=== PATIENT | male | born 1985 | race Caucasian/White ===

== ENCOUNTER 2016-08-29 18:12 | Emergency (ER) | payer MEDICAID ==
[~2016-08-29] VITALS: Ht 177.8 cm; Wt 113.6 kg
[~2016-08-29 18:12] MED LIST: ATARAX 10MG10 MG/TAB PO; FLEXERIL 1010 MG/TAB PO; NO HOME MEDICATIONS; NORCO 325 MG-51 TAB PO; PROCTOFOAM-HC 11 FOA RC; SEROQUEL50 MG PO; ZOLOFT 100MG100 MG PO
[2016-08-29 18:15] VITALS: BP 109/78; TEMP 98.6
[2016-08-29] MEDS ORDERED: DESYREL 50MG50 MG PO (18:18)
[2016-08-29] MEDS ORDERED: BUSPAR5 MG PO (18:19)
[2016-08-29] MEDS ORDERED: RISPERDAL 0.20.25 MG PO (18:19)
[2016-08-29 19:15] LABS: INFLUENZA B NEGATIVE
[2016-08-29] MEDS ORDERED: PROAIR HFA0.09 MG/AC IH (19:28)
[2016-08-29] MEDS ORDERED: PREDNISONE20 MG PO (19:28)
[2016-08-29] MEDS ORDERED: NORCO 325 MG-51 TAB PO (19:28)
[2016-08-29] MEDS ORDERED: FLEXERIL 1010 MG/TAB PO (19:28)
[2016-08-29 19:44] VITALS: PULSE 103
== END 2016-08-29 19:43 | disposition home or self-care (01) ==
LOC: COL.ER 18:12
PROVIDERS: Nurse Practitioner
DX: J40 Bronchitis, not specified as acute or chronic (principal); M54.5 Low back pain; F17.210 Nicotine dependence, cigarettes, uncomplicated
CPT/HCPCS: J1885; J2360; J7512

== ENCOUNTER 2016-09-08 11:49 | Emergency (ER) | payer MEDICAID ==
[~2016-09-08] VITALS: Ht 180.3 cm; Wt 113.6 kg
[~2016-09-08 11:49] MED LIST changes: +BUSPAR5 MG PO; +DESYREL 50MG50 MG PO; +PREDNISONE20 MG PO; +PROAIR HFA0.09 MG/AC IH; +RISPERDAL 0.20.25 MG PO
[2016-09-08 11:52] VITALS: BP 141/88; TEMP 97.8
[2016-09-08 13:39] LABS: PH 6 (5-8); SQUAMOUS EPITHELIAL None Seen /hpf; URINE APPEARANCE Clear; URINE BACTERIA None Seen /hpf; URINE BILIRUBIN Negative (NEGATIVE); URINE BLOOD Negative (NEGATIVE); URINE COLOR Yellow; URINE GLUCOSE Negative (NEGATIVE); URINE KETONE Negative (NEGATIVE); URINE UROBILINOGEN Negative (NEGATIVE); URINE WBC 0-2 /hpf
[2016-09-08 14:12] LABS: BASO # 0.1 (0.0-0.2); BASO % 0.4 % (0.0-2.0); EOS # 0.3 (0.0-0.7); EOS % 1.7 % (0-4.0); GRAN # 13.8 (1.4-6.5); GRAN % 75.9 % (42.2-75.2); HEMATOCRIT 45.3 % (42.0-52.0); HEMOGLOBIN 15.1 g/dl (13.5-18.0); LYMPH # 2.7 (1.2-3.4); LYMPH % 14.6 % (20.0-51.0); MEAN CELL VOLUME 82 fl (80.0-100.0); MEAN CORPUSCULAR HEMOGLOBIN 28 pg (27.0-31.0); MEAN CORPUSCULAR HGB CONC 33 g/dl (33.0-37.0); MEAN PLATELET VOLUME 9.3 fl (7.4-10.4); MONO # 1.3 (0.1-0.6); MONO % 6.9 % (1.7-9.3); PLATELET COUNT 337 K/mm3 (130-400); REDCELL DISTRIBUTION WIDTH-CV 13.9 % (11.5-14.5); WHITE BLOOD COUNT 18.2 K/mm3 (4.8-10.8)
[2016-09-08 14:16] LABS: ADJUSTED CALCIUM 9.6 mg/dL (8.4-10.2); ALBUMIN 4.2 gm/dL (3.5-5.0); BILIRUBIN,TOTAL 0.8 mg/dL (0.0-1.0); CALCIUM 9.8 mg/dL (8.4-10.2); CREATININE, serum 0.8 mg/dL (0.66-1.25); POTASSIUM 3.8 mmol/L (3.4-5.0)
[2016-09-08] MEDS ORDERED: ZOFRAN ODT4 MG PO (16:22)
[2016-09-08 16:38] VITALS: PULSE 92
== END 2016-09-08 16:38 | disposition home or self-care (01) ==
LOC: COL.ER 11:49
PROVIDERS: Emergency Medicine
DX: R10.13 Epigastric pain (principal); R10.11 Right upper quadrant pain
CPT/HCPCS: J1170; J1885; J2550; J7030; Q9967

== ENCOUNTER → 2024-05-12 | Outpatient (CLI) | payer MEDICAID ==
[~2024-05-12] MED LIST changes: +ZOFRAN ODT4 MG PO
[2024-05-16 05:39] LABS: BETA-2 GPI IGG AABS <9 (0-20); BETA-2 GPI IGM AABS <9 (0-32)
== END ==
LOC: COL.LAB 14:44
PROVIDERS: Nurse Practitioner
DX: I74.11 Embolism and thrombosis of thoracic aorta (principal)